=== PATIENT | female | born 1975 | race Caucasian/White ===

== ENCOUNTER 2018-01-01 18:46 | Emergency (ER) | payer BC ==
[2018-01-01 18:52] VITALS: RESP 20
[2018-01-01] MEDS ORDERED: Sodium Chloride 0.9% 1,000 ML IV ONE (19:48)
--- NOTE | 2018-01-01 19:49 | C.PDOC ---
History Of Present Illness 42 year old female presents to the ER with a complaint of constant epigastric abdominal pain that occasionally radiates to the back since approximately 18: 00. Patient reports she has a PMHx of gallstones and gallstone pancreatitis, and notes she has a gallbladder. Patient states the pain is not associated with vomiting, diarrhea, dysuria, hematuria, vaginal bleeding, or vaginal discharge. Time Seen by Provider: 01/01/18 19:06 Chief Complaint (Nursing): Abdominal Pain History Per: Patient History/Exam Limitations: no limitations Onset/Duration Of Symptoms: Hrs Current Symptoms Are (Timing): Still Present Location Of Pain/Discomfort: Epigastric Radiation Of Pain To:: Back (occasionally) Quality Of Discomfort: Unable To Describe Associated Symptoms: denies: Nausea, Vomiting, Diarrhea, Urinary Symptoms, Other (Vaginal discharge, vaginal bleeding) Exacerbating Factors: None Alleviating Factors: None Recent travel outside of the [place]: No Abnormal Vaginal Bleeding: No Past Medical History Reviewed: Historical Data, Nursing Documentation, Vital Signs Vital Signs: Last Vital Signs Temp 97.5 F L 01/01/18 21:04 Pulse 86 01/01/18 21:04 Resp 20 01/01/18 21:04 BP 130/65 01/01/18 21:04 Pulse Ox 100 01/01/18 22:19 - Medical History PMH: Rheumatoid Arthritis - [facility] Procedures ANESTH INJEC PERIPH NERV (11/03/13) OCCUPATIONAL THERAPY (11/05/13) OP RED-INT FIX TIB/FIBUL (11/03/13) PHYSICAL THERAPY NEC (11/05/13) Family History: States: Unknown Family Hx - Social History Hx Tobacco Use: No Hx Alcohol Use: Yes Hx Substance Use: No - Immunization History Hx Tetanus Toxoid Vaccination: No Hx Influenza Vaccination: No Hx Pneumococcal Vaccination: No Review Of Systems Except As Marked, All Systems Reviewed And Found Negative. Gastrointestinal: Positive for: Abdominal Pain Physical Exam - Physical Exam Appears: Other (Moderate pain, Obese) Skin: Normal Color, Warm, Dry Head: Atraumatic, Normacephalic Eye(s): bilateral: Normal Inspection Oral Mucosa: Moist Chest: Symmetrical, No Tenderness Cardiovascular: Rhythm Regular Respiratory: Normal Breath Sounds, No Rales, No Rhonchi, No Wheezing Gastrointestinal/Abdominal: Soft, Tenderness (Epigastric to palpation), No Guarding, No Rebound, Other (Negative Mcburney's, Positive Amie's) Back: No CVA Tenderness Neurological/Psych: Oriented x3, Normal Speech ED Course And Treatment - Laboratory Results Result Diagrams: 01/01/18 19:56 01/01/18 19:56 O2 Sat by Pulse Oximetry: 100 (Room air) Pulse Ox Interpretation: Normal - CT Scan/US ABD US Other Rad Studies (CT/US): Read By Radiologist, Radiology Report Reviewed CT/US Interpretation: EXAM: US Abdomen Limited, Right Upper Quadrant. CLINICAL HISTORY: 42 years old, female; Pain; Abdominal pain; Generalized; Additional info: Epigastric/ruq pain, h/o. gallstones. TECHNIQUE: Real-time ultrasound of the right upper quadrant with image documentation. COMPARISON: No relevant prior studies available. FINDINGS: Limitations: Limited study due to patient's body habitus. Liver: Liver measures 16.1 CM longitudinally. Increased echogenicity consistent with fatty. infiltration. No intrahepatic bile duct dilation. Gallbladder: Gallstones. No gallbladder wall thickening. No sonographic Chopra's sign. Common bile duct: Measures 5 mm. No stones. No dilation. Pancreas: Unremarkable as visualized. Right kidney: Right kidney measures 10 CM longitudinally. No stones. No hydronephrosis. IMPRESSION: 1. Cholelithiasis. 2. Remainder of findings as above. [facility]. [facility]. Final Radiology Report [id number]. Name: UGO HU Age: 42Years F Date: 01/01/2018. SSN: [id number] : 1975. Study: ABDOMEN LTD Requesting Physician: AGUSTIN ESTEVEZ. Images: 63. Addl Studies: Provided Clinical History: epigastric/RUQ pain, h/o gallstones. CONFIDENTIALITY STATEMENT. This transmission is confidential and is intended to be a privileged communication. It is intended only for the use of the addressee. Access to this. message by anyone else is unauthorized. If you are not the intended recipient, any disclosure, copying, distribution or any action taken, or omitted to. be taken in reliance on it is prohibited and may be unlawful. If you received this communication in error, please notify us by telephone, so that return. of this document to us can be arranged. Page 2 of 2. Thank you for allowing us to participate in the care of your patient. Dictated and Authenticated by: Naveed Levy MD. 01/01/2018 9:25 PM Eastern Time ([place] & [place]) CT ABD/PELVIS Other Rad Studies (CT/US): Read By Radiologist, Radiology Report Reviewed CT/US Interpretation: EXAM: CT Abdomen and Pelvis Without Intravenous Contrast. CLINICAL HISTORY: 42 years old, female; Pain; Abdominal pain; Generalized; Additional info: Abdominal pain, R/O. kidney stone, pancreatitis. TECHNIQUE: Axial computed tomography images of the abdomen and pelvis without intravenous contrast. All CT. scans at this facility use one or more dose reduction techniques, viz.: automated exposure control;. ma/kV adjustment per patient size (including targeted exams where dose is matched to indication; i.e. head); or iterative reconstruction technique. Coronal and sagittal reformatted images were created and reviewed. COMPARISON: US - ABDOMEN LIMITED 2018-01-01 20:13. FINDINGS: Lung bases: Unremarkable. No mass. No consolidation. Heart: Mild cardiomegaly. ABDOMEN: Liver: Unremarkable. Gallbladder and bile ducts: Cholelithiasis. No ductal dilation. Pancreas: Unremarkable. No ductal dilation. Spleen: Unremarkable. No splenomegaly. Adrenals: Unremarkable. No mass. Kidneys and ureters: Unremarkable. No obstructing stones. No hydronephrosis. [facility]. [facility]. Final Radiology Report [id number]. Name: UGO HU Age: 42Years F Date: 01/01/2018. SSN: [id number] : 1975. Study: CT ABDOMEN/PELVIS WO Requesting Physician: AGUSTIN ESTEVEZ. Images: 674. Addl Studies: Provided Clinical History: abdominal pain, r/o kidney stone, pancreatitis. CONFIDENTIALITY STATEMENT. This transmission is confidential and is intended to be a privileged communication. It is intended only for the use of the addressee. Access to this. message by anyone else is unauthorized. If you are not the intended recipient, any disclosure, copying, distribution or any action taken, or omitted to. be taken in reliance on it is prohibited and may be unlawful. If you received this communication in error, please notify us by telephone, so that return. of this document to us can be arranged. Page 2 of 2. Stomach and bowel: Gastric surgery. Bowel anastomotic suture line, left mid abdomen. Appendix: No findings to suggest acute appendicitis. PELVIS: Bladder: Unremarkable. No stones. Reproductive: Enlarged myomatous uterus. Large pedunculated fibroid suspected arising off the. uterine fundus. Followup pelvic ultrasound. ABDOMEN and PELVIS: Intraperitoneal space: Trace free fluid in pelvis. No free air. Bones/joints: No acute fracture. No dislocation. Soft tissues: Unremarkable. Vasculature: Atherosclerotic vascular disease. No abdominal aortic aneurysm. Lymph nodes: Unremarkable. No enlarged lymph nodes. IMPRESSION: 1. Cholelithiasis. 2. Enlarged myomatous uterus. 3. Remainder of findings as above. Thank you for allowing us to participate in the care of your patient. Dictated and Authenticated by: Naveed Levy MD. 01/01/2018 10:09 PM Eastern Time ([place] & [place]) Progress Note: Blood work, urinalysis, and abdominal US ordered. Morphine and IV fluids administered. Disposition Counseled Patient/Family Regarding: Studies Performed, Diagnosis, Need For Followup, Rx Given - Disposition Referrals: Mauricio Bianchi MD [Staff Provider] - Ivy Tolentino MD [Medical Doctor] - Disposition: HOME/ ROUTINE Disposition Time: 22:45 Condition: STABLE Additional Instructions: FOLLOW UP WITH GENERAL SURGERY WITHIN 1 WEEK, AND WITH YOUR FICTION AND NONFICTION PROSE WRITER SCHEDULED ON FRIDAY USE PAIN MEDICATION NEEDED AVOID FATTY/FRIED FOODS RETURN TO ER IF SYMPTOMS WORSEN Prescriptions: traMADol [Ultram] 50 mg PO BID PRN #15 tab PRN Reason: pain Instructions: Gallstones (DC), Uterine Fibroids (DC) Forms: [employer] (Malay) Print Language: YI - Clinical Impression Clinical Impression: Abdominal pain, Gallstones, Fibroid, uterine - Scribe Statement The provider has reviewed the documentation as recorded by the Fridaibelbert Roche All medical record entries made by the Fridaibelbert were at my direction and personally dictated by me. I have reviewed the chart and agree that the record accurately reflects my personal performance of the history, physical exam, medical decision making, and the department course for this patient. I have also personally directed, reviewed, and agree with the discharge instructions and disposition.
[2018-01-01 19:59] LABS: BASO # 0.1 K/uL (0.0-0.2); BASO % 0.6 % (0.0-2.0); EOS # 0.1 K/uL (0.0-0.7); EOS % 0.5 % (0.0-4.0); HEMOGLOBIN 9.4 g/dL (11.0-16.0); LYMPH # 3.8 K/uL (1.0-4.3); LYMPH % 32.9 % (20.0-40.0); MEAN CELL VOLUME 69.8 fL (81.0-99.0); MEAN CORPUSCULAR HEMOGLOBIN 21.2 pg (27.0-31.0); MEAN CORPUSCULAR HGB CONC 30.4 g/dL (33.0-37.0); MEAN PLATELET VOLUME 8.8 fL (7.2-11.7); MONO # 0.7 K/uL (0.0-0.8); MONO % 5.7 % (0.0-10.0); NEUT # 6.9 K/uL (1.8-7.0); NEUT % 60.3 % (50.0-75.0); RBC 4.44 Mil/uL (3.80-5.20); WHITE BLOOD COUNT 11.4 K/uL (4.8-10.8)
[2018-01-01 20:11] LABS: ALB/GLOB RATIO 1.2 (1.0-2.1); ALT/SGPT 20 U/L (9-52); AST/SGOT 13 U/L (14-36); BLOOD UREA NITROGEN 17 mg/dL (7-17); GFR AFRICAN-AMERICAN > 60; GFR NON-AFRICAN AMERICAN > 60; LIPASE 298 U/L (23-300)
[2018-01-01 20:15] LABS: HCG,QUALITATIVE URINE NEGATIVE (NEGATIVE)
[2018-01-01 20:28] LABS: SQUAMOUS EPITHIAL 20 /hpf (0-5); URINE BACTERIA OCC (<OCC); URINE BILIRUBIN NEGATIVE (NEGATIVE); URINE BLOOD 2+ (NEGATIVE); URINE CALCIUM OXALATE CRYSTALS OCC /hpf (<OCC); URINE CLARITY Hazy (Clear); URINE COLOR Yellow (YELLOW); URINE GLUCOSE (UA) NORMAL (Normal); URINE LEUKOCYTE ESTERASE 1+ Leu/uL (Negative); URINE PROTEIN 1+ mg/dL (NEGATIVE)
[2018-01-01] MEDS ORDERED: Morphine 4 MG/ML VIAL ONE (20:44)
[2018-01-01] MEDS ORDERED: Sodium Chloride 0.9% 1,000 ML ONE (20:44)
--- NOTE | 2018-01-01 21:25 | US ---
EXAM: US Abdomen Limited, Right Upper Quadrant CLINICAL HISTORY: 42 years old, female; Pain; Abdominal pain; Generalized; Additional info: Epigastric/ruq pain, h/o gallstones TECHNIQUE: Real-time ultrasound of the right upper quadrant with image documentation. COMPARISON: No relevant prior studies available. FINDINGS: Limitations: Limited study due to patient's body habitus. Liver: Liver measures 16.1 CM longitudinally. Increased echogenicity consistent with fatty infiltration. No intrahepatic bile duct dilation. Gallbladder: Gallstones. No gallbladder wall thickening. No sonographic Chopra's sign. Common bile duct: Measures 5 mm. No stones. No dilation. Pancreas: Unremarkable as visualized. Right kidney: Right kidney measures 10 CM longitudinally. No stones. No hydronephrosis. IMPRESSION: 1. Cholelithiasis. 2. Remainder of findings as above.
--- NOTE | 2018-01-01 22:10 | CT ---
EXAM: CT Abdomen and Pelvis Without Intravenous Contrast CLINICAL HISTORY: 42 years old, female; Pain; Abdominal pain; Generalized; Additional info: Abdominal pain, R/O kidney stone, pancreatitis TECHNIQUE: Axial computed tomography images of the abdomen and pelvis without intravenous contrast. All CT scans at this facility use one or more dose reduction techniques, viz.: automated exposure control; ma/kV adjustment per patient size (including targeted exams where dose is matched to indication; i.e. head); or iterative reconstruction technique. Coronal and sagittal reformatted images were created and reviewed. COMPARISON: US - ABDOMEN LIMITED 2018-01-01 20:13 FINDINGS: Lung bases: Unremarkable. No mass. No consolidation. Heart: Mild cardiomegaly. ABDOMEN: Liver: Unremarkable. Gallbladder and bile ducts: Cholelithiasis. No ductal dilation. Pancreas: Unremarkable. No ductal dilation. Spleen: Unremarkable. No splenomegaly. Adrenals: Unremarkable. No mass. Kidneys and ureters: Unremarkable. No obstructing stones. No hydronephrosis. Stomach and bowel: Gastric surgery. Bowel anastomotic suture line, left mid abdomen. Appendix: No findings to suggest acute appendicitis. PELVIS: Bladder: Unremarkable. No stones. Reproductive: Enlarged myomatous uterus. Large pedunculated fibroid suspected arising off the uterine fundus. Followup pelvic ultrasound. ABDOMEN and PELVIS: Intraperitoneal space: Trace free fluid in pelvis. No free air. Bones/joints: No acute fracture. No dislocation. Soft tissues: Unremarkable. Vasculature: Atherosclerotic vascular disease. No abdominal aortic aneurysm. Lymph nodes: Unremarkable. No enlarged lymph nodes. IMPRESSION: 1. Cholelithiasis. 2. Enlarged myomatous uterus. 3. Remainder of findings as above.
[2018-01-01 23:18] VITALS: BP 111/72; PULSE 65; TEMP 97.9; O2SAT 97
== END 2018-01-01 23:19 | disposition home or self-care (01) ==
LOC: C.ER 18:46
DX: K80.80 Other cholelithiasis without obstruction (principal); D25.9 Leiomyoma of uterus, unspecified; R10.9 Unspecified abdominal pain
CPT/HCPCS: 74176; 76705; 80053; 81001; 83690; 84703; 85025; 96361; 96374; 96375; 99285; J1885; J2270; J2405; J7040

== ENCOUNTER 2018-01-21 05:54 | Observation (INO) | payer BC ==
[2018-01-15 08:31] VITALS: BMI 42.5
[2018-01-21] MEDS ORDERED: Lidocaine/Epinephrine 1% 1:100000 10 ML IJ ONE (07:10)
[2018-01-21] MEDS ORDERED: ceFAZolin 1 gm in NS 2 GM/200 ML BAG IVPB ONE (07:10)
[2018-01-21] MEDS ORDERED: Bupivacaine HCl 0.25% PF (30 ml) Inj ONE ×2 (07:10→08:40)
[2018-01-21] MEDS ORDERED: Propofol 10 mg/ml Inj (20 ML) ONE ×2 (07:36→10:13)
[2018-01-21] MEDS ORDERED: Midazolam 2 MG/2 ML VIAL ONE (07:36)
[2018-01-21] MEDS ORDERED: Rocuronium 10 mg/ml (5 ml) ONE (07:38)
[2018-01-21] MEDS ORDERED: Methylene Blue 10 mg/mL(10ml) IV ONE (08:40)
[2018-01-21] MEDS ORDERED: HYDROmorphone 0.5 mg/0.5 ml ISec IVP PRN (11:05)
--- NOTE | 2018-01-21 11:12 | PCM.SURG1 ---
Surgeon's Initial Post Op Note - Surgeon's Notes Surgeon: Dr. Bianchi Cloth Dyer: Luis HALLMAN Type of Anesthesia: General Endo Pre-Operative Diagnosis: Symptomatic Cholelithiasis Operative Findings: Phlegmanous gallbladder. Extensive adhesions Post-Operative Diagnosis: Phlegmanous Chronic Cholecystitis Operation Performed: Robotic Cholecystectomy w/ Lysis of adhesions Specimen/Specimens Removed: Gallbladder Estimated Blood Loss: EBL {In ML}: 100 Drains Used: Garry Date of Surgery/Procedure: 01/21/18 Time of Surgery/Procedure: 07:30
[2018-01-21] MEDS: HYDROmorphone 0.5 mg/0.5 ml ISec IVP PRN ×6 (11:15→14:15)
[2018-01-21] MEDS ORDERED: Piperacillin/Tazobact 3.375 gm 100 ML IVPB STA ×2 (11:15→14:34)
[2018-01-21] MEDS ORDERED: metroNIDAZOLE IV 500 mg/100 ml 500 MG/100 ML BAG IVPB STA ×2 (11:17→14:34)
[2018-01-21] MEDS ORDERED: Lactated Ringer's 1,000 ML IV ONE (13:00)
[2018-01-21] MEDS ORDERED: HYDROmorphone 0.5 mg/0.5 ml ISec ONE (14:16)
[2018-01-21] MEDS: Oxycodone/Acetaminophen 5/325 mg Tab PO PRN ×2 (17:10→21:44)
[2018-01-21] MEDS: metroNIDAZOLE IV 500 mg/100 ml 500 MG/100 ML BAG IVPB SCH ×2 (21:00→22:00)
[2018-01-22] MEDS: Piperacillin/Tazobact 3.375 GM in Sodium Chloride 100 ML IVPB SCH ×2 (00:03→06:03)
[2018-01-22] MEDS: Oxycodone/Acetaminophen 5/325 mg Tab PO PRN ×2 (02:02→06:01)
--- NOTE | 2018-01-22 02:36 | OP ---
PROCEDURE DATE: 01/21/2018 PREOPERATIVE DIAGNOSES: 1. Acute on chronic cholecystitis. 2. Morbid obesity. 3. Status post gastric bypass with possible postoperative adhesion. POSTOPERATIVE DIAGNOSES: 1. Acute phlegmonous cholecystitis. 2. Extensive post infectious and postoperative adhesion. 3. Liver abscess, large of unknown etiology of left lobe of the liver. PROCEDURES DONE: 1. Robotic cholecystectomy. 2. Robotic extensive lysis of adhesions. 3. Robotic drainage of liver abscess. SURGEON: Mauricio Bianchi MD. WEBLOGIC DEVELOPER: VIJI Rodriguez and Dr. Strauss. ANESTHESIA: General endotracheal tube anesthesia. ESTIMATED BLOOD LOSS: Around 100 mL. DRAINS: 19 Albanian Garry drain was placed. COMPLICATIONS: None. INTRAOPERATIVE FINDINGS: The patient had phlegmonous acute and chronic cholecystitis with extensive postinfectious and postoperative adhesion. The patient also had large liver abscess of unknown origin in the left lobe of liver and extensive lysis of adhesion was done. Approximately 60-80 minutes extra was spent for the routine procedure due to morbid obesity due to extensive adhesion and due to the abscess. DESCRIPTION OF PROCEDURE: On intraoperative steps, this is a 42-year-old morbidly obese female who was diagnosed with acute and chronic cholecystitis. The patient was seen in the emergency room and the patient was followed up in the office and the patient was consented for robotic cholecystectomy possible open, brought to the OR, placed supine on the operating table. After induction of anesthesia, abdomen was prepped and draped in the usual sterile fashion. A supraumbilical transverse incision was made after incising skin and subcutaneous tissue and the fascia, the peritoneal cavity was entered. Pneumo was created. Another three 8-mm robotic camera port was placed in the upper abdomen and another 5 mm port was placed in the right flank and the patient was found to have extensive phlegmonous changes and the gallbladder was completely covered with omentum and with blunt and sharp dissection, the gallbladder was dissected from the colon and from surrounding structures and the dissection was continued and there was a large liver abscess of the left lobe of the liver that was connecting the gallbladder that was first detected and drained and now the dissector was carried down to identify the Calot's triangle. The cystic duct and cystic artery was identified. The patient had a very short cystic duct and the top down approach was done and the common bile duct was also identified and the cystic duct and the cystic artery were clipped at 3 places and cut in between 2 clips nearby the gallbladder. The gallbladder was dissected free from the gallbladder fossa taken in EndoCatch bag. Due to the extremely large size of the gallbladder, it took approximately another half an hour just remove the specimen and the umbilical incision was extended in order to remove the specimen. The specimen was sent off the table for pathology. Now suction irrigation of the gallbladder fossa was done. A 19 Albanian Garry drain was placed and Garry drain was connected to the suction and after proper hemostasis all the port was taken out under vision, pneumo was deflated. The umbilical port site was closed in multiple Vicryl at the fascial level and the skin and subcutaneous with 2-0 Vicryl and 4-0 Monocryl at all port sites and dry sterile dressing was applied. The patient tolerated the procedure well. Count of the instruments and gauze was correct. There was no apparent complications. The patient was extubated in OR, sent to the postanesthesia care unit in stable condition. Mauricio Bianchi MD YOLANDA
[2018-01-22] MEDS: metroNIDAZOLE IV 500 mg/100 ml 500 MG/100 ML BAG IVPB SCH (05:20)
[2018-01-22 05:59] VITALS: TEMP 98.6
[2018-01-22 07:13] LABS: BASO % 0.1 % (0.0-2.0); EOS % 0.1 % (0.0-4.0); HEMOGLOBIN 7.5 g/dL (11.0-16.0); LYMPH # 1.7 K/uL (1.0-4.3); LYMPH % 15.1 % (20.0-40.0); MEAN CELL VOLUME 67.5 fL (81.0-99.0); MEAN CORPUSCULAR HEMOGLOBIN 20.7 pg (27.0-31.0); MEAN CORPUSCULAR HGB CONC 30.7 g/dL (33.0-37.0); MEAN PLATELET VOLUME 8.3 fL (7.2-11.7); MONO # 0.8 K/uL (0.0-0.8); MONO % 7.1 % (0.0-10.0); NEUT # 8.9 K/uL (1.8-7.0); NEUT % 77.6 % (50.0-75.0); RBC 3.62 Mil/uL (3.80-5.20); RED CELL DISTRIBUTION WIDTH 21.3 % (11.5-14.5); WHITE BLOOD COUNT 11.5 K/uL (4.8-10.8)
[2018-01-22] MEDS ORDERED: Oxycodone/Acetaminophen 5/325 mg Tab PO STA (07:44)
[2018-01-22] MEDS ORDERED: Oxycodone/Acetaminophen 5/325 mg Tab PO PRN (07:45)
[2018-01-22 08:06] LABS: BLOOD UREA NITROGEN 6 mg/dL (7-17); CALCIUM 8.4 mg/dl (8.6-10.4); GFR AFRICAN-AMERICAN > 60; GFR NON-AFRICAN AMERICAN > 60
[2018-01-22 09:10] VITALS: BP 96/62; PULSE 94; RESP 18; O2SAT 95
--- NOTE | 2018-01-22 09:42 | CP.PCM.DIS ---
Provider - Provider Date of Admission: 01/21/18 12:32 Attending physician: Mauricio Bianchi MD Time Spent in preparation of Discharge (in minutes): 20 Diagnosis - Discharge Diagnosis (1) Cholecystitis Status: Acute Priority: High Hospital Course - Lab Results Lab Results: Most Recent Lab Values WBC 11.5 K/uL (4.8-10.8) H 01/22/18 06:45 RBC 3.62 Mil/uL (3.80-5.20) L 01/22/18 06:45 Hgb 7.5 g/dL (11.0-16.0) L 01/22/18 06:45 Hct 24.4 % (34.0-47.0) L 01/22/18 06:45 MCV 67.5 fL (81.0-99.0) L 01/22/18 06:45 MCH 20.7 pg (27.0-31.0) L 01/22/18 06:45 MCHC 30.7 g/dL (33.0-37.0) L 01/22/18 06:45 RDW 21.3 % (11.5-14.5) H 01/22/18 06:45 Plt Count 531 K/uL (130-400) H 01/22/18 06:45 MPV 8.3 fL (7.2-11.7) 01/22/18 06:45 Neut % (Auto) 77.6 % (50.0-75.0) H 01/22/18 06:45 Lymph % (Auto) 15.1 % (20.0-40.0) L 01/22/18 06:45 [place] % (Auto) 7.1 % (0.0-10.0) 01/22/18 06:45 Eos % (Auto) 0.1 % (0.0-4.0) 01/22/18 06:45 Baso % (Auto) 0.1 % (0.0-2.0) 01/22/18 06:45 Neut # (Auto) 8.9 K/uL (1.8-7.0) H 01/22/18 06:45 Lymph # (Auto) 1.7 K/uL (1.0-4.3) 01/22/18 06:45 Prowers # (Auto) 0.8 K/uL (0.0-0.8) 01/22/18 06:45 Eos # (Auto) 0.0 K/uL (0.0-0.7) 01/22/18 06:45 Baso # (Auto) 0.0 K/uL (0.0-0.2) 01/22/18 06:45 Sodium 142 mmol/L (132-148) 01/22/18 06:45 Potassium 3.7 mmol/L (3.6-5.2) 01/22/18 06:45 Chloride 103 mmol/L (98-107) 01/22/18 06:45 Carbon Dioxide 28 mmol/L (22-30) 01/22/18 06:45 Anion Gap 15 (10-20) 01/22/18 06:45 BUN 6 mg/dL (7-17) L 01/22/18 06:45 Creatinine 0.7 mg/dL (0.7-1.2) 01/22/18 06:45 Est GFR ( Amer) > 60 01/22/18 06:45 Est GFR (Non-Af Amer) > 60 01/22/18 06:45 Random Glucose 100 mg/dL (65-105) 01/22/18 06:45 Calcium 8.4 mg/dl (8.6-10.4) L 01/22/18 06:45 Blood Type A POSITIVE 01/21/18 07:06 Antibody Screen Negative 01/21/18 07:06 - Hospital Course Hospital Course: Patient was admitted s/p robotic assisted laparoscopic cholecystectomy for observation. Patient was found to have phelgmanous cholecystitis with abscess in liver. Patient was afebrile overnight. She is tolerating regular diet. Pain controlled. She has been OOB. Drain out put was 40cc/SA fluid overnight. Patient found to be in good condition for d/c home POD1. She will be discharged with percocet, PO levaquin and flagyl for 7 days, and should f/u with Dr. Bianchi in 1 week for elias drain removal. Discharge Exam - Head Exam Head Exam: ATRAUMATIC, NORMOCEPHALIC - Eye Exam Eye Exam: EOMI, Normal appearance - ENT Exam ENT Exam: Mucous Membranes Moist - Respiratory Exam Respiratory Exam: NORMAL BREATHING PATTERN. absent: Respiratory Distress - Cardiovascular Exam Cardiovascular Exam: REGULAR RHYTHM. absent: Tachycardia - GI/Abdominal Exam GI & Abdominal Exam: Soft. absent: Distended, Tenderness Additional comments: Elias drain in RMQ with SA fluid output, dressing CDI - Extremities Exam Extremities exam: normal inspection - Neurological Exam Neurological exam: Alert, Oriented x3 - Psychiatric Exam Psychiatric exam: Normal Affect, Normal Mood - Skin Skin Exam: Dry, Normal Color, Warm Discharge Plan - Discharge Medications Prescriptions: Levofloxacin [Levaquin] 750 mg PO DAILY #7 tablet Metronidazole [Flagyl] 500 mg PO BID #14 tablet oxyCODONE/Acetaminophen [Percocet 5/325 mg Tab] 1 tab PO Q4H PRN #20 tab PRN Reason: Pain, Moderate (4-7) Polyethylene Glycol 3350 [Miralax] 17 gm PO Q12 #1 ml - Follow Up Plan Condition: GOOD Disposition: HOME/ ROUTINE Patient education suggested?: Yes Instructions: Madhav-Mooney Drain, Metronidazole (Systemic), How to Prevent Surgical Site Infections, Cholecystectomy, Laparoscopic Surgery Additional Instructions: please call office for appointment to see him in his office for follow up visits. drain care: open the drain ,squeeze the bulb and empty the contents to a container,keep a record of the output,bring the list with you when you go to "s office. secure the drain,if the drain fell off ,DO NOT put them back ,instead call the doctor. observe the drain site for any redness or swelling,if present please inform the doctor. for any questions call your doctor. Referrals: Mauricio Bianchi MD [Staff Provider] -
== END 2018-01-22 13:43 | disposition home or self-care (01) ==
LOC: C.SDS 05:54 → C.9E 12:32 → C.9S 12:52 → C.6T 19:26
PROVIDERS: ADMIT Surgery Surgical Critical Care; ATTEND Surgery Surgical Critical Care
DX: K80.12 Calculus of gallbladder with acute and chronic cholecystitis without obstruction (principal); K66.0 Peritoneal adhesions (postprocedural) (postinfection); Z98.84 Bariatric surgery status; K75.0 Abscess of liver; E66.01 Morbid (severe) obesity due to excess calories; Z68.41 Body mass index [BMI] 40.0-44.9, adult
CPT/HCPCS: 36415; 47562; 49329; 49405; 80048; 85025; 86850; 86900; 86920; 88304; G0378; J0690; J1100; J1170; J1885; J2001; J2250; J2405; J2543; J2704; J3010; J7030; J7050; J7120